=== PATIENT | male | born 1955 | race Caucasian/White ===

== ENCOUNTER 2018-04-08 21:09 | Emergency (ER) | payer SELFPAY ==
[2018-04-08 22:28] LABS: BASOPHIL % 0.3 % (0-2); PLATELET COUNT 192 x10^3mcL (130-400); RED CELL DISTRIBUTION WIDTH 13.1 % (11.5-14.5)
[2018-04-08 22:37] LABS: AMPHETAMINE QUAL UR NONE DETECTED (See below)
[2018-04-08 22:44] LABS: SODIUM SERUM 137 mmol/L (136-145)
[2018-04-08 22:50] LABS: CARBON DIOXIDE 30.7 mmol/L (21-32); CHLORIDE SERUM 103 mmol/L (98-107); CREATININE SERUM 1.1 mg/dL (0.7-1.3); GFR1 > 60 mL/min; GLUCOSE SERUM 90 mg/dL (74-106); POTASSIUM SERUM 3.7 mmol/L (3.5-5.1)
[2018-04-08 22:51] LABS: CALCIUM 9.9 mg/dL (8.5-10.1)
[2018-04-08 22:54] LABS: ALBUMIN 4.1 g/dL (3.4-5.0); AST/SGOT 41 U/L (15-37)
[2018-04-08 23:16] LABS: ALT/SGPT 63 U/L (16-63); BILIRUBIN TOTAL 0.88 mg/dL (0.20-1.00)
[2018-04-08 23:17] LABS: ALKALINE PHOSPHATASE 92 U/L (46-116)
[2018-04-09 00:31] VITALS: BP 133/81
== END 2018-04-09 00:31 | disposition home or self-care (01) ==
LOC: ED 21:09
PROVIDERS: Emergency Medicine
DX: I10 Essential (primary) hypertension (principal); R51 Headache; R42 Dizziness and giddiness
CPT/HCPCS: 36415; Q0092